=== PATIENT | female | born 1985 | race Caucasian/White ===

== ENCOUNTER 2020-07-11 09:37 | Inpatient (IN) | payer BC ==
[~2020-07-11] VITALS: Ht 177.8 cm; Wt 78.9 kg
[~2020-07-11 09:37] MED LIST: BIRTH CONTROL; ZES20 PO
[2020-07-11 09:56] VITALS: Ht 177.8 cm; Wt 78.9 kg
--- NOTE | 2020-07-11 10:18 | NUR ---
awake alert oriented, stated since yesterday had 3 attacks of lt leg heaviness, +sensation,+pedal pulse,
--- NOTE | 2020-07-11 11:11 | NUR ---
TO CT SCAN,
[2020-07-11 11:38] LABS: BASOPHIL % 0.5 % (0-2); PLATELET COUNT 307 x10^3mcL (130-400)
[2020-07-11 11:41] LABS: RED CELL DISTRIBUTION WIDTH 15.9 % (11.5-14.5)
[2020-07-11 12:13] LABS: CALCIUM 8.9 mg/dL (8.5-10.1); CARBON DIOXIDE 31.7 mmol/L (21-32); CHLORIDE SERUM 103 mmol/L (98-107); GFR1 > 60 mL/min; GLUCOSE SERUM 94 mg/dL (74-106); POTASSIUM SERUM 3.2 mmol/L (3.5-5.1); SODIUM SERUM 142 mmol/L (136-145)
[2020-07-11 12:18] LABS: ALBUMIN 3.7 g/dL (3.4-5.0); ALKALINE PHOSPHATASE 75 U/L (46-116); ALT/SGPT 50 U/L (14-59); AST/SGOT 26 U/L (15-37); BILIRUBIN TOTAL 0.7 mg/dL (0.20-1.00); TOTAL PROTEIN, SERUM 8.2 g/dL (6.4-8.2)
[2020-07-11 13:32] LABS: UA SPECIFIC GRAVITY 1.025 (1.005-1.035); microscopic required? YES; urine erythrocyte NEGATIVE (NEGATIVE)
--- NOTE | 2020-07-11 13:43 | NUR ---
RESTING IN BED, NO COMPLAINTS ,WAITING RESULTS
--- NOTE | 2020-07-11 15:04 | NUR ---
PT TAKEN TO CT ANGIO VIA [facility].
--- NOTE | 2020-07-11 16:24 | NUR ---
BP REMAINS HIGH ,MEDICATED WITH LABETALOL,NO OMPLAINTS AT THIS TIME,DONOR SERVICES MANAGER IN SR,
[2020-07-11 17:22] LABS: CHOLESTEROL/HDL RATIO 3.2
--- NOTE | 2020-07-11 17:27 | NUR ---
WAITING ADMISSION,FEELS BETTER,,CARIAC MONITOR SR,
--- NOTE | 2020-07-11 19:28 | NUR ---
ASSUMING CARE OF PT AT THIS TIME. PT AWAKE AND ALERT. RESP EVEN AND UNLABORED, PT DENIES ANY PAIN AT THIS TIME. VITALS UPDATED. WAITING FOR TELE ROOM. WILL CONT TO MONITOR.
--- NOTE | 2020-07-11 20:18 | NUR ---
CALLED AND GAVE REPORT TO EMA LESTER TO ASSUME CARE OF PT AT THIS TIME. SHE STATES PLEASE WAIT 10 MINS TO BRING UP PT ROOM STILL BEING CLEANED.
[2020-07-11 20:44] LABS: AMPHETAMINE QUAL UR NONE DETECTED (See below)
[2020-07-11 20:59] VITALS: BP 156/108
--- NOTE | 2020-07-11 21:11 | NUR ---
RECEIVED PT FROM ER, PT ADMIT FOR CVA, PT IS A/O X4, VERBAL RESPONSIVE. NO FACIAL DROOP NOTED. NO WEAKNESS SIDE. C/O HEADACHE 4/10, LUNG SOUND CLEAR BILATERAL, NO COUGH, NO SOB. PT IS ON TELE 31, NSR, DENY ANY CHEST PAIN OR DISCOMFORT, BOWEL SOUND PRESENT ALL 4 QUADRANTS, NO DISTENTION, NO TENDER. PEDAL PULSE PRESENT BOTH FEET, NO EDEMA, IV AT LEFT AC, NO LEAKING, NO INFITRATION. ALL ADLS ASSIST, ALL NEED MET, CALL LIGHT IN REACH, WILL CONTINUE TO MONITOR.
--- NOTE | 2020-07-12 00:55 | NUR ---
PT. ASLEEP AT THIS TIME. EYES CLOSED. APPEARS COMFORTABLE. NSR ON MONITOR. NO C/O CHESTPAIN OR DISCOMFORT. NO INCREASE IN WEAKNESS OR NEW NEURO DEFICITS THUS FAR. WILL CONTINUE TO MONITOR.
[2020-07-12 05:56] VITALS: BP 185/112
--- NOTE | 2020-07-12 06:10 | NUR ---
BLOOD PRESSURE ELEVATED THIS MORNING, 185/112, AND 195/112. PT. DENIED PAIN, DENIED HEADACHE. NO BLURRED VISION. NO NEW NEURO DEFICIT OR WEAKNESS NOTED. PRN HYDRALYZINE, IVP, GIVEN ORDERED. BP REPEATED, BLOOD PRESSURE 198/118. RESIDENT, DR. SCHNEIDER, MADE AWARE. WILL CONTINUE TO MONITOR PT.
--- NOTE | 2020-07-12 06:51 | NUR ---
PT.'S BLOOD PRESSURE CONTINUED TO INCREASE, 204.114, MAP 148. RESIDENT MADE AWARE. PER DR. BRANCH, WHO WAS PRESENT WITH DR. SCHNEIDER, PT. HAS TO BE TREATED AND ALLOWED PERMISSIVE HTN TO EXIST FOR UP TO 24HRS. NO MEDICATION ORDERED, BUT PARAMETERS FOR SBP NOW FOR HYDRALYZINE, TO BE GIEN FOR SBP GREATER THAN 200. CHARGE NURSE MADE AWARE.
[2020-07-12 07:08] LABS: CALCIUM 8.7 mg/dL (8.5-10.1); CARBON DIOXIDE 30.5 mmol/L (21-32); CHLORIDE SERUM 104 mmol/L (98-107); CREATININE SERUM 0.8 mg/dL (0.6-1.0); GFR1 > 60 mL/min; GLUCOSE SERUM 93 mg/dL (74-106); MAGNESIUM 2.1 mg/dL (1.8-2.4); POTASSIUM SERUM 3.4 mmol/L (3.5-5.1); SODIUM SERUM 142 mmol/L (136-145)
[2020-07-12 07:16] LABS: BASOPHIL % 0.5 % (0-2); PLATELET COUNT 276 x10^3mcL (130-400); RED CELL DISTRIBUTION WIDTH 16.6 % (11.5-14.5)
--- NOTE | 2020-07-12 07:30 | NUR ---
RECEIVED PATIENT RESTING IN BED, NO ACUTE DISTRESS NOTED. PATIENT AAOX4, DENIES HEADACHE. TELE MONITOR IN PLACE, NSR NOTED. PULSES PALPABLE X4, NO EDEMA NOTED. LUNG SOUNDS CTA, DENIES SOB. NO NEW NEURO DEFICITS OR WEAKNESS NOTED. DENIES PAIN AT THIS TIME. IV TO LAC SALINE LOCK, CDI&PATENT. CALL LIGHT WITHIN REACH, BED IN LOW POSITION, WILL CONTINUE TO MONITOR.
[2020-07-12 08:50] VITALS: BP 206/121
--- NOTE | 2020-07-12 08:55 | NUR ---
PATIENT BP WAS 206/121 (150), RECHECKED PATIENT BP: 208/116 (142). NO NEW NEURO DEFICITS NOTED AND WEAKNESS NOTED. PATIENTS REPORTS A HEADACHE 03/11, PATIENT HAS ASPIRIN DUE AT 0900 WILL GIVE AND CONTINUE TO MONITOR. DR. LIVIER DUARTE AT THIS TIME, WILL FOLLOW UP.
--- NOTE | 2020-07-12 09:36 | NUR ---
NOTIFIED DR. KEMP REGARDING PATIENTS ELEVATED BP, DR. KAUFFMAN MADE AWARE 1ST BP WAS 206/121 MAP 150 AND 2ND BP WAS 208/[address] KEMP STATED SHE WILL TEXT DR. MAIER.
--- NOTE | 2020-07-12 09:56 | NUR ---
DR. VIRGEN AWARE OF PATIENTS BP; PER DR. PROMISE HARTLEY TO HOLD OFF HYDRALAZINE. WILL CONTINUE TO MONITOR.
[2020-07-12 12:15] VITALS: BP 218/137
--- NOTE | 2020-07-12 12:15 | NUR ---
PATIENTS BP REMAINED ELEVATED, BP 218/[address] MAIER AWARE AND WANTS TO MAINTAIN PATIENT IN PREMISSIVE HTN. PATIENT DENIES HEADACHE AT THIS TIME. NO NEW NEURO DEFICIT NOTED AT THIS TIME. WILL CONTINUE TO MONITOR.
[2020-07-12] MEDS ORDERED: LIPI20 PO (15:41)
[2020-07-12] MEDS ORDERED: ECO81 PO (15:42)
--- NOTE | 2020-07-12 15:51 | NUR ---
DR. MAIER MADE AWARE BP WAS 219/125 MAP 154 HR 91, PER DR. LIVIER HARTLEY TO GIVE HYDRALAZINE IVP.
[2020-07-12 16:20] VITALS: BP 191/120
--- NOTE | 2020-07-12 16:20 | NUR ---
PATIENT BLOOD PRESSURE DECREASED TO 191/120 MAP 138, AFTER HYDRALAZINE 10MG IVP GIVEN. NO ACUTE CHANGES NOTED AT THIS TIME. PATIENT DENIES HEADACHE. ALL NEEDS MET AT THIS TIME, WILL CONTINUE TO MONIOR.
--- NOTE | 2020-07-12 19:25 | NUR ---
PER CHARGE NURSE MARCELO PATIENT WILL RECEIVED MRI PRIOR TO DISCHARGE, PATIENT MADE AWARE.
--- NOTE | 2020-07-12 21:30 | NUR ---
RECEIVED REPORT FROM TAYLER CAMPOS. PT RESTING IN BED. AA&O X4. NO SOB ON ROOM AIR. BREATHING EVEN AND UNALBORED. NO C/O CHEST PAIN. DENIES WEAKNESS AT THIS TIME. TYLENOL WAS GIVEN BY PREVIOUS RN FOR HEADACHE AND HYDRALAZINE FOR HIGH BP. WILL REASSESS. SAFETY MEASURES IN PLACE. BED IN LOWEST POSITION. INSTRUCTED PT TO USE THE CALL LIGHT FOR ASSISTANCE. CALL LIGHT WITHIN REACH.
[2020-07-12 22:21] VITALS: BP 231/151
--- NOTE | 2020-07-12 22:45 | NUR ---
BP RECHECK AFTER HYDRALAZINE 10 MG IVP, BP 231/[address] SCHNEIDER MADE AWARE. WAITING FOR NEW ORDERS.
--- NOTE | 2020-07-12 22:51 | NUR ---
PT REQUESTED MD REGARDING MRI RESULTS. DR SCHNEIDER AT BEDSIDE EXPLAINING PLAN OF CARE.
--- NOTE | 2020-07-12 23:41 | NUR ---
HYDRALAZINE 20MG IVP GIVEN PER ORDER.
[2020-07-13 01:00] VITALS: BP 151/97
--- NOTE | 2020-07-13 01:00 | NUR ---
RECHECKED BP 151/97 HR 127.
[2020-07-13 05:35] VITALS: BP 165/108
[2020-07-13 06:59] LABS: BASOPHIL % 0.3 % (0-2); PLATELET COUNT 389 x10^3mcL (130-400)
[2020-07-13 07:08] LABS: RED CELL DISTRIBUTION WIDTH 16.6 % (11.5-14.5)
--- NOTE | 2020-07-13 07:09 | NUR ---
RECEIVED PT FROM PIPE WRAPPING MACHINE OPERATOR NURSE. PT IN BED SLEEPING, AROUSABLE, RESP E/U ON RA. NO ACUTE DISTRESS NOTED. ON TELE [address], HR: 113. SALINE LOCK TO LAC W/ NO ERYTHEMA/EDEMA. BED IN LOWEST POSITION AND CALL LIGHT WITHIN REACH. WILL CONTINUE TO MONITOR.
[2020-07-13 07:20] LABS: CALCIUM 9.1 mg/dL (8.5-10.1); CARBON DIOXIDE 29.6 mmol/L (21-32); CHLORIDE SERUM 104 mmol/L (98-107); GFR1 > 60 mL/min; GLUCOSE SERUM 100 mg/dL (74-106); MAGNESIUM 2.1 mg/dL (1.8-2.4); PHOSPHOROUS 4.4 mg/dL (2.5-4.9); POTASSIUM SERUM 4.3 mmol/L (3.5-5.1); SODIUM SERUM 141 mmol/L (136-145)
--- NOTE | 2020-07-13 07:30 | NUR ---
PT RESTING COMFORTABLY. NO SOB ON ROOM AIR. NO C/O CHEST PAIN. NO DISTRESS NOTED. DENIES HEADACHE OR WEAKNESS TO LLE. SAFETY MEASURES MAINTAINED. CALL LIGHT WITHIN REACH. ENDORSED ACRE TO DAY SHIFT RN.
[2020-07-13 08:04] VITALS: BP 200/136
--- NOTE | 2020-07-13 08:20 | NUR ---
BP: 200/136. PRN HYDRALAZINE IVP ADMINISTERED ORDERED PER EMAR. PT DENIES HEADACHE, CHEST PAIN OR SOB. WILL CONTINUE TO MONITOR.
[2020-07-13 11:39] VITALS: BP 188/110
--- NOTE | 2020-07-13 12:42 | NUR ---
PT RESTING IN BED, AOX4, RESP E/U ON RA. DENIES HEADACHE, DIZZINESS OR FATIGUE. NO ACUTE DISTRESS NOTED. BED IN LOWEST POSITION AND CALL LIGHT WITHIN REACH. WILL CONTINUE TO MONITOR.
[2020-07-13] MEDS ORDERED: ZESTRIL10 MG PO (13:25)
[2020-07-13] MEDS ORDERED: CLOPIDOGREL75 M1 PO (13:25)
[2020-07-13] MEDS ORDERED: ECO81 PO (13:25)
[2020-07-13] MEDS ORDERED: LIPI20 PO (13:25)
--- NOTE | 2020-07-13 16:35 | NUR ---
PT DISCHARGED. D/C PACKET, NEW RX MEDS AND F/U INSTRUCTIONS REVIEWED W/ PT, PT VERBALIZED UNDERSTANDING OF INSTRUCTIONS. PT AOX4, RESP E/U ON RA, VS STABLE, DENIES PAIN AT THIS TIME. IV TO LAC REMOVED, CATH INTACT, GAUZE APPLIED TO SITE. PT AMBULATORY TO D/C OFFICE, ESCORTED BY TAYLER GAMING W/ NO ACUTE INCIDENCE.
== END 2020-07-13 16:30 | disposition home or self-care (01) | DRG 64 ==
LOC: ED 09:37 → DU 14:48
PROVIDERS: Emergency Medicine; Internal Medicine; ADMIT Family Medicine; ATTEND Family Medicine
DX: I63.9 Cerebral infarction, unspecified (principal); N17.0 Acute kidney failure with tubular necrosis; I16.1 Hypertensive emergency; E78.5 Hyperlipidemia, unspecified; E87.6 Hypokalemia; I10 Essential (primary) hypertension; Z83.3 Family history of diabetes mellitus; Z82.49 Family history of ischemic heart disease and other diseases of the circulatory system; Z79.82 Long term (current) use of aspirin; Z79.899 Other long term (current) drug therapy
CPT/HCPCS: G0378; J0360; J3490; J7030; Q0092; Q9967

== ENCOUNTER 2020-09-07 10:15 | Inpatient (IN) | payer BC ==
[~2020-09-07] VITALS: Ht 172.7 cm; Wt 121.2 kg
[~2020-09-07 10:15] MED LIST changes: +CLOPIDOGREL75 M1 PO; +ECO81 PO; +LIPI20 PO; +ZESTRIL10 MG PO
[2020-09-07 10:24] VITALS: Ht 172.7 cm; Wt 121.2 kg
--- NOTE | 2020-09-07 10:47 | NUR ---
ER RESIDENT AT BEDSIDE TO SEE PT. PT ARRIVES WITH EPIGASTRIC PAINS SINCE SATURDAY. NO GUARDING OBSERVED AT THIS TIME
[2020-09-07 11:22] LABS: BASOPHIL % 1.3 % (0-2); PLATELET COUNT 334 x10^3mcL (130-400)
[2020-09-07 11:23] LABS: RED CELL DISTRIBUTION WIDTH 17.1 % (11.5-14.5)
--- NOTE | 2020-09-07 11:45 | NUR ---
ULTRA SOUND AT BEDSIDE COMPLETED. NO GUARDING OBSERVED.
[2020-09-07 11:50] LABS: CALCIUM 9.3 mg/dL (8.5-10.1); CARBON DIOXIDE 27.3 mmol/L (21-32); CREATININE SERUM 1.3 mg/dL (0.6-1.0); POTASSIUM SERUM 3.5 mmol/L (3.5-5.1)
[2020-09-07 11:54] LABS: ALBUMIN 3.7 g/dL (3.4-5.0); BILIRUBIN TOTAL 1.2 mg/dL (0.20-1.00)
[2020-09-07 12:13] LABS: microscopic required? YES; urine erythrocyte NEGATIVE (NEGATIVE)
--- NOTE | 2020-09-07 13:35 | NUR ---
INITIATED FLAGYL @ 100ML/HR. PLEASE SEE EMAR.
--- NOTE | 2020-09-07 15:15 | NUR ---
MEDICAL STUDENT AT BEDSIDE SPEAKING WITH PT. AWARE OF IMPENDING ADMISSION AND PLANS FOR SURGERY
--- NOTE | 2020-09-07 16:00 | NUR ---
RECEIVED PATIENT FROM ER VIA WHEELCHAIR, AA/O X4, NO DISTRESS NOTED. C/O 6/10 EPIGASTRIC PAIN. MED-SURG, HR 73. UPDATE POC AND ANSWER ALL QUESTION. KEEP NPO X MEDS. CALL LIGHT WITHIN. CARE ENDORSE TO PALMIRA LESTER.
[2020-09-07 16:05] LABS: AMPHETAMINE QUAL UR NONE DETECTED (See below)
[2020-09-07 16:16] VITALS: BP 124/78
[2020-09-07 16:25] LABS: MAGNESIUM 2.2 mg/dL (1.8-2.4); PHOSPHOROUS 3.5 mg/dL (2.5-4.9)
[2020-09-07 16:28] LABS: CHOLESTEROL/HDL RATIO 2.6
--- NOTE | 2020-09-07 19:48 | NUR ---
RECEIVED PT FROM DAY SHIFT NURSE. PT A.OX4. ABLE TO MAKE NEEDS KNOWN. SPEECH CLEAR. MED SURG. PULSES PALPABLE. NO EDEMA PRESENT. RR EVEN AND UNLABOED ON RA. PT DENIES SOB OR DIFFICULTY BREATHING. PT VOIDS FREELY. AMBULATORY. NO C/O PAIN OR DISCOMFORT. IV TO RFA INFUSING NS AT 100ML/HR. CALL LIGHT WITHIN REACH. BED IN LOWEST POSITION. WILL CONTINUE TO MONITOR.
[2020-09-07 19:55] VITALS: BP 144/74
--- NOTE | 2020-09-08 00:55 | NUR ---
PT SLEEPING AT THIS TIME. NO SIGNS OF ACUTE DISTRESS NOTED. RR EVEN AND UNLABORED ON RA. NO C/O OF PAIN OR DISCOMFORT. WILL CONTINUE TO MONITOR.
[2020-09-08 05:18] VITALS: BP 137/74
--- NOTE | 2020-09-08 06:15 | NUR ---
PT SLEEPING AT THIS TIME. EASILY AROUSABLE. NO SIGNS OF ACUTE DISTRESS NOTED. NO C/O PAIN OR DISCOMFORT AT THIS TIME. ALL NEEDS/CONCERNS ADDRESSED THROUGHOUT THE SHIFT. WILL ENDORSE CARE TO ONCOMING SHIFT NURSE.
--- NOTE | 2020-09-08 07:30 | NUR ---
ROUNDING WITH OUTGOING RECORD CENTER SPECIALIST RN , ADANA SCAN TECH HERE AT BEDSIDE AND RN CONVERTED IV TO SALINE LOCK AND WHEELCHAIR PT TO HIDA SCAN DEPT .
[2020-09-08 07:32] LABS: BASOPHIL % 0.3 % (0-2); PLATELET COUNT 271 x10^3mcL (130-400); RED CELL DISTRIBUTION WIDTH 17.2 % (11.5-14.5)
[2020-09-08 07:57] LABS: BILIRUBIN TOTAL 1.1 mg/dL (0.20-1.00); CALCIUM 8.4 mg/dL (8.5-10.1); CARBON DIOXIDE 23.2 mmol/L (21-32); CREATININE SERUM 1.5 mg/dL (0.6-1.0); MAGNESIUM 2.1 mg/dL (1.8-2.4); PHOSPHOROUS 4.2 mg/dL (2.5-4.9); POTASSIUM SERUM 3.9 mmol/L (3.5-5.1)
[2020-09-08 08:00] LABS: ALBUMIN 2.8 g/dL (3.4-5.0)
--- NOTE | 2020-09-08 14:00 | NUR ---
NEW IV STARTED VIA LEFT FOREARM ANGIO # [id number] AND ANTIBIOTIC ZOSYN IVPB ADMINISTERED , FORMER IV DISCONTINUED ,
[2020-09-08 17:08] VITALS: BP 136/70
--- NOTE | 2020-09-08 18:15 | NUR ---
MD SCHNEIDER CALLED AND INFORMED ABOUT HIDA SCAN RESULTS ACUTE CHLECYSTITIS , NO OBSTRUCTION OF THE CYSTIC OR COMMON BILE DUCT AND PT MADE AWARE AND ACKNOWLEDGED .
--- NOTE | 2020-09-08 19:48 | NUR ---
RECEIVED PT FROM DAY SHIFT NURSE. PT AWAKE RESTING IN BED AT THIS TIME. A/OX4. ABLE TO MAKE NEEDS KNOWN. MED SURG. RR EVEN AND UNLABORED ON RA. VOIDS FREELY. AMBULATORY. PT DENIES PAIN AT THIS TIME. IV TO RFA INFUSING NS AT 100ML/HR. CALL LIGHT WITHIN REACH. BED IN LOWEST POSITION. WILL CONTINUE TO MONITOR.
[2020-09-08 20:38] VITALS: BP 156/87
--- NOTE | 2020-09-09 02:47 | NUR ---
PT SLEEPING AT THIS TIME. NO SIGNS OF ACUTE DISTRESS NOTED. WILL CONTINUE TO MONITOR.
[2020-09-09 05:36] VITALS: BP 148/95
--- NOTE | 2020-09-09 06:23 | NUR ---
PT AWAKE RESTING IN BED AT THIS TIME. NO SIGNS OF ACUTE DISTRESS NOTED. RR EVEN AND UNLABORED ON RA. PT DENIES PAIN AT THIS TIME. ALL NEEDS/CONCERNS ADDRESSED THROUGHOUT THE SHIFT. WILL ENDORSE CARE TO ONCOMING SHIFT NURSE
[2020-09-09 06:28] LABS: BASOPHIL % 0.5 % (0-2); PLATELET COUNT 274 x10^3mcL (130-400)
[2020-09-09 06:38] LABS: RED CELL DISTRIBUTION WIDTH 17.6 % (11.5-14.5)
[2020-09-09 07:04] LABS: CALCIUM 8.7 mg/dL (8.5-10.1); CARBON DIOXIDE 24.4 mmol/L (21-32); CHLORIDE SERUM 105 mmol/L (98-107); GFR1 > 60 mL/min; GLUCOSE SERUM 72 mg/dL (74-106); MAGNESIUM 1.9 mg/dL (1.8-2.4); PHOSPHOROUS 3.1 mg/dL (2.5-4.9); SODIUM SERUM 139 mmol/L (136-145)
[2020-09-09 08:11] VITALS: BP 146/95
[2020-09-09 11:53] VITALS: BP 144/98
[2020-09-09 16:53] VITALS: BP 141/86
[2020-09-09 16:54] VITALS: BP 120/30
--- NOTE | 2020-09-09 19:03 | NUR ---
PATIENT RESTING IN BED, NO APPARENT DISTRESS. NO ACUTE CHANGES NOTED THROUGHOUT SHIFT. IV SITE INFUSING WELL, CDI AND PATENT. WILL ENDORSE TO ONCOMING NIGHT NURSE.
--- NOTE | 2020-09-09 19:30 | NUR ---
NURSING CO-SIGN THE DOCUMENTATION ENTERED BY THE IP HAS BEEN REVIEWED. REVIEWED/CO-SIGNED BY: Janis Roe RN DOCUMENTATION DONE BY: TASHA LARIOS RN
--- NOTE | 2020-09-09 20:02 | NUR ---
PT LYING IN BED SUPINE WATCHING TV ON CELL PHONE. A/OX4, CALM AND COOPERATIVE. RESPIRATIONS EVEN, UNLABORED, CTA, RA. DENIES SOB, DIZZINESS, CHEST PAIN. BS ACTIVE. ABD FLAT/SOFT. TENDER TO PALPATION. LBM 09/09, LOOSE. DENIES URINARY ISSUES. PERIPHERAL PULSES STRONG. NO EDEMA NOTED. DENIES PAIN. BED IN LOWEST POSITION, SIDE RAILS X 2, CALL LIGHT WITHIN REACH
[2020-09-09 21:31] VITALS: BP 167/83
--- NOTE | 2020-09-10 00:16 | NUR ---
PT LYING IN BED SUPINE WATCHING TV ON PHONE. RESPIRATIONS UNLABORED. DENIES PAIN, N/V. IV LFA PATENT, RUNNING NS@100 ML/HR, NO COMPLICATIOS TO SITE. ALL NEEDS MET. BED IN LOWEST POSTION, SIDE RAILS X 2, CALL LIGHT WITHIN REACH
[2020-09-10 05:39] VITALS: BP 147/81
--- NOTE | 2020-09-10 06:38 | NUR ---
PT SLEEPING SUPINE. RESPIRATIONS UNLABORED. NON VERBAL PAIN INDICATORS ABSENT. NO C/O PAIN, N/V, DIARRHEA DURING SHIFT. PT ROVIDED WITH SUPPLIES TO CLEAN SELF SINCE NO SHOWER AVAILABLE. IV LFA PATENT RUNNING NS@100ML/HR, NO COMPLICATIONS TO SITE. NO FALLS OR INJURIES SUSTAINED DURING SHFIT. BED IN LOWEST POSITION, SIDE RAILS X 2, CALL LIGHT WITHIN REACH
[2020-09-10 08:00] VITALS: BP 145/94
--- NOTE | 2020-09-10 10:48 | NUR ---
pt sleeping, easily woken to voice. medicated as ordered. tolerated well. updated by rn. latrice&ox4. respiratons unlabored. skin warm and dry. denies any complaints or concerns at this time.
[2020-09-10 12:13] VITALS: BP 154/89
--- NOTE | 2020-09-10 14:49 | NUR ---
MEDICATED ORDERED. TOLERATED WELL. SITE CLEAR. a&OX4. RESPIRATIONS UNLABORED. SKIN WARM AND DRY. WATCHING TV RESTING QUIETLY IN BED.
[2020-09-10 16:13] VITALS: BP 134/85
--- NOTE | 2020-09-10 18:39 | NUR ---
PT RESTING QUEITLY IN BED. NO CHANGES TO PT CONDITION.
--- NOTE | 2020-09-10 19:06 | NUR ---
REPORT TO ONCOMING RN
--- NOTE | 2020-09-10 19:50 | NUR ---
RECEIVED PT IN BED, AWAKE, RESTING COMFORTABLY. A/O X 3, ABLE TO FOLLOW COMMANDS, ABLE TO MAKE NEEDS KNOWN, SPEECH IS CLR, NO C/O CHASE OR DIZZINESS. RESP IS EVEN AND UNLABORED, LUNGS CLR BILATERALLY, SPO2 98% ON RA. RADIAL AND PEDAL PULSES PRESENT, NO EDEMA NOTED. NO C/O CHEST PAIN AT THIS TIME. ABD ROUND AND SOFT, REPORTS SLIGHT TENDERNESS ON THE RUQ, NO C/O NV, REPORTS LAST BM 10, BROWN WATERY WITH CHUNKS. PT VOIDS FREELY, NO DISCOMFORT REPORTED. IV SITE ON THE LFA UIS PATENT AND FLUSHING BUT PT C/O PAIN. WILL ATTEMPT TO REINSERT TO ANOTHER LOCATION. BED TO LOWEST POSTITION, CALL LIGHT WITHIN REACH. WILL CONT TO MONITOR FOR CHANGES IN CONDITION.
[2020-09-10 20:51] VITALS: BP 126/86
--- NOTE | 2020-09-10 21:40 | NUR ---
PT C/O PAIN ON THE LFA IV SITE, DC'D, MINIMAL BLEEDING, CATHETER INTACT. INSERTED A NEW IV ON THE LEFT HAND WITH GOOD BLOOD RETURN, FLUSHING WELL, PT TOLERATED WELL.
--- NOTE | 2020-09-11 00:33 | NUR ---
PT IN BED, RESTING COMFORTABLY WITH EYES CLOSED. NO C/O PAIN, NO ACUTE DISTRESS NOTED. RESP IS EVEN AND UNLABORED.BED TO LOWEST POSITION, CALL LIGHT WITHIN REASY REACH, WILL CONT TO MONIOTR FOR CHANGES IN POSITION.
[2020-09-11 04:50] VITALS: BP 147/82
--- NOTE | 2020-09-11 06:00 | NUR ---
PT AWAKE RESTING COMFORTABLY WITH EYES CLOSED, NO C/O PAIN, NO ACUTE DISTRESS NOTED. RESP IS EVEN AND UNLABORED. WILL CONT TO MONITOR FOR CHANGES IN CONDITION AND ENDORSE TO NEXT SHIFT NURSE.
[2020-09-11 08:03] VITALS: BP 135/75
[2020-09-11 12:25] VITALS: BP 128/76
[2020-09-11 16:53] VITALS: BP 138/94
--- NOTE | 2020-09-11 17:56 | NUR ---
PT EATING DINNER AT THIS TIME. NAD. AMY PO WELL. WILL CONT TO MONITOR.
--- NOTE | 2020-09-11 20:00 | NUR ---
PT A/A/O X4. DENIES DIZZINESS AND HEADACHE. BREATH SOUNDS CLEAR. BREATHING EVEN AND UNLABORED ON ROOM AIR. DENIES CHEST PAIN AND PRESSURE. BOWEL SOUNDS ACTIVE. NO C/O N/V AND ABD PAIN THUS FAR. IV INTACT ON THE LEFT HAND INFUSING WITH NS AT 100 ML/HR. MADE PT COMFORTABLE. PLACED CALL LIGHT WITH IN REACH. WILL CONTINUE TO MONITOR.
[2020-09-11 21:13] VITALS: BP 142/91
--- NOTE | 2020-09-12 00:46 | NUR ---
PT RESTING WITH EYES CLOSED. NO DISTRESS AND DISCOMFORT NOTED. WILL CONTINUE TO MONITOR.
[2020-09-12 05:49] VITALS: BP 129/83
--- NOTE | 2020-09-12 06:40 | NUR ---
PT QUIET AND RESTING. DENIES ABDOMINAL PAIN THUS FAR. IV INTACT AND INFUSING ORDERED. MADE PT COMFORTABLE. WILL ENDORSE TO THE AM NURSE ACCORDINGLY.
[2020-09-12 08:22] VITALS: BP 146/91
[2020-09-12 16:24] VITALS: BP 164/99
--- NOTE | 2020-09-12 17:17 | NUR ---
DAY SHIFT Patient received awake and alert, able to make needs known. No complaints of respiratory distress. Patient scheduled for a lap gopal this morning. AM lisinopril and docusate was held prior to procedure. Tolerated procedure well. Per OR team patient had BP sustaining in 170's when she was waking up from anesthesia - administered labetolol x1. Post procedure patient was educated on importance of using call light for assistance due to discomfort and noted to still be slightly sedated. Was able to eat lunch and tolerated well, clear liquid. No nausea noted. No complaints of pain up until this point. Patient stated she had some abdominal disconfort but refused pain medication. Currently has a right quadrant EMILY drain with serosanguinous drainage. Will continue to monitor closely.
[2020-09-12 17:26] LABS: PLATELET COUNT 314 x10^3mcL (130-400)
[2020-09-12 17:27] LABS: BASOPHIL % 0 % (0-2); RED CELL DISTRIBUTION WIDTH 16.7 % (11.5-14.5)
[2020-09-12 17:28] LABS: CALCIUM 9.4 mg/dL (8.5-10.1); CARBON DIOXIDE 27.9 mmol/L (21-32); CHLORIDE SERUM 102 mmol/L (98-107); GFR1 > 60 mL/min; GLUCOSE SERUM 116 mg/dL (74-106); POTASSIUM SERUM 3.9 mmol/L (3.5-5.1); SODIUM SERUM 139 mmol/L (136-145)
--- NOTE | 2020-09-12 20:00 | NUR ---
Pt received in bed awake S/P lap gopal, lap site x3 CDI, EMILY w/ serosanguineous drainage Condition stable No signs of distress Mild pain to abdomen
[2020-09-12 21:20] VITALS: BP 178/115
[2020-09-13 00:30] VITALS: BP 180/119
[2020-09-13 06:21] VITALS: BP 175/115
--- NOTE | 2020-09-13 06:29 | NUR ---
Pt slept overnight, condition stable All due care rendered, no signs of distress noted S/P lap gopal, dressing to abdomen CDI, EMILY w/ serosanguineous drainage Medicated w/ [place] x2 and IV Morphine x1, pain better controlled this am Elevated BP last night Dr. Smith made aware, ordered PRN PO Hydralazine, given but BP still elevated this am, Dr. Smith notified again, adjusted dose of hydralazine Ambulated to restroom, voided Belching but not passing gas
[2020-09-13 07:42] LABS: BASOPHIL % 0.3 % (0-2); PLATELET COUNT 314 x10^3mcL (130-400)
[2020-09-13 08:00] LABS: RED CELL DISTRIBUTION WIDTH 16.4 % (11.5-14.5)
[2020-09-13 08:02] VITALS: BP 172/117
[2020-09-13 08:24] LABS: CALCIUM 8.8 mg/dL (8.5-10.1); CARBON DIOXIDE 24.9 mmol/L (21-32); CHLORIDE SERUM 103 mmol/L (98-107); CREATININE SERUM 0.9 mg/dL (0.6-1.0); GFR1 > 60 mL/min; GLUCOSE SERUM 146 mg/dL (74-106); MAGNESIUM 1.5 mg/dL (1.8-2.4); PHOSPHOROUS 3.8 mg/dL (2.5-4.9); POTASSIUM SERUM 3.8 mmol/L (3.5-5.1); SODIUM SERUM 139 mmol/L (136-145)
--- NOTE | 2020-09-13 09:37 | NUR ---
PATIENT IS A 34 YEAR OLD FEMALE THAT CAME INTO [facility] FOR EPIGASTRIC PAIN THAT WAS PRESENT IN THE RUQ FOR THREE DAYS. IMPACTED GALLBLADDER STONES FORCED A LAP MARGIE 09/12. UA WAS NEGATIVE. CLEAR LUNG SOUNDS. RUQ EMILY DRAIN PRESENT WITH 55CC OUTPUT PER NOC SHIFT. NS RUNNING AT 100CC/HR THOUGH LH 20G. AMBULATORY. ALERT AND ORIENTED X 4 ABLE TO VERBLAIZE NEEDS.
[2020-09-13 11:47] VITALS: BP 150/95
--- NOTE | 2020-09-13 16:00 | NUR ---
Initial Nutrition Assessment: MEAGHAN HERRERA 34F MR Dx: Impacted gallbladder stone PMHx: HTN, s/p CVA in July PSHx: none Labs: (09/13) BG 146H, MG 1.5L, WBC 11.4H, NEUT% 84.8H, LYMPH% 9.2L, A1C 6.2 (09/08) ALB 2.8L, BILI 1.1H, ALT 73H, ALK 73H Meds: lisinopril, Colace, Apresoline, Zosyn, Sodium CHL, Adkins, Morphine, Lipitor Diet: Clear liquid PO intake since admission: (09/09) Constant Carb Diabetic: B: 100%, L: 100%, D: 100%, (09/10) B: 100%, L: 95%, D: 100%, (09/11) B: 100%, L: 100%, D: 100%, (09/12) NPO, (09/13) Clear liquid: B: 80%, Average 97.5% x 10 meals Ht: 172.7cm/68 in Wt:121.16kg/267.2 lb BMI: 40.6 kg/m2 Bed scale: 121 kg/268 lbs IBW: 67 kg/148 lbs %IBW: 180% ABW: 81kg/178 lbs UBW: 114 kg/250 lbs Age: 34y/o Food Allergies: none per pt Edema: no noted Last BM: 09/12 per pt Skin: LAP sites x 3, RUQ EMILY x 1, B/L upper w/bruises, R wrist bruise Ravi: 20 Per H and P (09/07) Patient is a 34 yo female with a hx of HTN that presents to the ED with complaints of abdominal pain that is localized to the RUQ. Pain started Saturday after she had a fat and heavy dinner. The pain is worse with movement. There are no alleviating factors. Pain is sharp and does not radiate. Pain is rated at 6/10 and constant in nature. Severity of the pain has improved since onset. Patient denies fever, nausea, vomiting, diarrhea, melena, and shortness of breath. Per EDs notes, patient went to her PCP and was given omeprazole but was ineffective at resolving her pain. The patient is ambulatory at the baseline. Pt was admitted with dx: Sepsis likely 2/2 possible cholecystitis vs choledocholithiasis, Hx of HTN, Vasomotor nephropathy 2/2 dehydration, Transaminases likely 2/2 cholecystitis vs choledocholithiasis, Morbid Obesity, DVT PPx RD Note (09/13): Pt was seen lying in bed, she was awake, verbally responsive and oriented in person, time, and place. Per pt, she reported good appetite and tolerating her current diet (previously CCHO diet). Pt stated she does not have any chewing or swallowing difficulties. Pt denied any recent weight changes and reported usual body weigh 250 lbs. Additionally, her food tray was observed on the bed site table with clear liquid diet, and pt stated she will start eating. Pt was in a CCHO diet until 09/11; then she was on NPO d/t lap gopal done yesterday, followed by clear liquid diet. Problem with: N/V/D/C: none per pt Problems with: Chewing: Swallowing: none per pt Current appetite: good per pt Recent wt change: none per pt %wt change: n/a Height: 70 in per pt Vitamin/Supplement use: fish oil everyday Special diet at home: none per pt Physical activity: walks 20-30 minutes 7 times/week Nutrition education given (specify specific nutrition education and handout given): Explained the importance of decreasing fat intake in her diet; including fried foods. Explained how fatty foods can increase gallbladder disease symptoms. Sample menus were provided as examples. Written education "Gallbladder Nutrition Therapy" and "Fat-Restricted Nutrition Therapy" from [facility] were provided to pt and she verbalized understanding. Food-drug interactions? Education given? n/a Estimated Nutritional Needs Based on adjusted body weight (81 kg) Energy: 1782 - 2025 kcal/day (22 -25 kcal/kg for weight reduction) Protein: 97 - 122 g/day (1.2 - 1.5 g/kg sepsis and weight reduction) Fluid: 1782 - 2025 mL/day (1 mL/kcal) Nutrition Diagnosis: 1. Excessive calories intake r/t lack of nutrition related knowledge a/e/b pt's history of consuming high fat and heavy meals and BMI over 40 Intervention 1. Continue with clear liquid diet until pt receives medical approve to advance to solid foods 2. Recommend continue CCHO, 60gms/Na2 gm diet once the pt is able to receive solid foods Monitor/Evaluate Goal: PO intake at least 75% of estimated needs Monitor: PO intake, Labs, GI function F/U in 3-5 days as moderate risk 09/16-
--- NOTE | 2020-09-13 16:01 | NUR ---
1. Continue with clear liquid diet until pt receives medical approve to advance to solid foods. 2. Recommend continue CCHO, 60gms/Na2 gm diet once the pt is able to receive solid foods.
[2020-09-13 16:19] VITALS: BP 132/82
--- NOTE | 2020-09-13 18:39 | NUR ---
DR YEAGER PAGED TO REPORT MAG 1.5- 2 GRAMS ORDERED AND REPLACED RUNNING AT THIS TIME. WILL INFORM NOC TO DC ONCE IT IS FINISHED. PATIENT DIET ADVANCED TO REGULAR IN AM, PATIENT AWARE TO TRY AND EAT. NO S/S OF DISTRESS NOTED AT END OF SHIFT.
--- NOTE | 2020-09-13 20:00 | NUR ---
Pt received in bed, awake Condition stable No signs of distress noted Complaining of mild abdominal pain
[2020-09-13 20:07] VITALS: BP 115/72
[2020-09-14 05:42] VITALS: BP 115/83
--- NOTE | 2020-09-14 05:52 | NUR ---
Pt slept overnight, condition stable All due care rendered, no signs of distress noted Ambulated to restroom, voiding S/P lap gopal, lap site CDI, EMILY w/ 15 cc serosanguineous output this am Abdominal pain this shift, medicated w/ [place] x1, reported good relief Pain 03/11 this am, offered pain med but patient says pain tolerable Belching, not passing gas yet, no BM yet On Zosyn, afebrile, vitals stable
[2020-09-14 07:47] LABS: BASOPHIL % 0.3 % (0-2); PLATELET COUNT 351 x10^3mcL (130-400)
[2020-09-14 07:54] LABS: CALCIUM 9.1 mg/dL (8.5-10.1); CARBON DIOXIDE 28.1 mmol/L (21-32); CHLORIDE SERUM 102 mmol/L (98-107); CREATININE SERUM 0.9 mg/dL (0.6-1.0); GFR1 > 60 mL/min; GLUCOSE SERUM 96 mg/dL (74-106); POTASSIUM SERUM 4.2 mmol/L (3.5-5.1); SODIUM SERUM 139 mmol/L (136-145)
[2020-09-14 08:09] VITALS: BP 142/94
[2020-09-14 08:15] LABS: RED CELL DISTRIBUTION WIDTH 16.5 % (11.5-14.5)
[2020-09-14 12:11] VITALS: BP 142/96
--- NOTE | 2020-09-14 12:27 | NUR ---
DAY SHIFT Patient received awake and alert, able to make needs known. No complaints of pain or respiratory distress. Denies nausea/ vomitting. IV is patent and flushing well. Resting comfortably in bed. Educated on calling for assistance for ambulation and to go to the bathroom. Patient understands her own limits. EMILY drain in place, draining serosanguinous fluid Will continue to monitor closely.
[2020-09-14] MEDS ORDERED: NORCO1 TA2 PO (12:51)
[2020-09-14 14:46] VITALS: BP 142/96
[2020-09-14 15:09] VITALS: BP 142/96
== END 2020-09-14 16:40 | disposition home or self-care (01) | DRG 853 ==
LOC: ED 10:15 → DU 12:54 → MU 12:54 → DU 16:15 → MU 20:19
PROVIDERS: Emergency Medicine; Surgery; ADMIT Internal Medicine; ATTEND Internal Medicine
PROC: 0FT44ZZ Resection of Gallbladder, Percutaneous Endoscopic Approach (ICD-10-PCS; principal; 2020-09-12 10:30)
DX: A41.9 Sepsis, unspecified organism (principal); N17.0 Acute kidney failure with tubular necrosis; K80.42 Calculus of bile duct with acute cholecystitis without obstruction; Z68.41 Body mass index [BMI] 40.0-44.9, adult; R10.9 Unspecified abdominal pain; I10 Essential (primary) hypertension; Z20.828 Contact with and (suspected) exposure to other viral communicable diseases; E66.01 Morbid (severe) obesity due to excess calories; E86.0 Dehydration; Z86.73 Personal history of transient ischemic attack (TIA), and cerebral infarction without residual deficits; Z83.3 Family history of diabetes mellitus; Z82.49 Family history of ischemic heart disease and other diseases of the circulatory system; Z79.899 Other long term (current) drug therapy; Z79.891 Long term (current) use of opiate analgesic; Z79.82 Long term (current) use of aspirin
CPT/HCPCS: 78226; 82962; A9537; G0378; J1170; J1885; J2270; J2405; J2543; J3010; J3475; J3490; J7030; J7040; Q0092; U0003-CS